=== PATIENT | female | born 1970 | race Caucasian/White ===

== ENCOUNTER 2021-02-23 15:21 | Emergency (ER) | payer OTHER, SELFPAY ==
--- NOTE | 2021-02-23 15:23 | ED.DENTAL ---
HPI - Dental/Oral General Chief complaint: Dental/Oral Stated complaint: tooth pain Time Seen by Provider: 02/23/21 15:23 Source: patient and RN notes reviewed History of Present Illness HPI Narrative: Patient is a 50-year-old female who presents the urgent care with complaints of right upper dental pain and facial swelling. Patient states that it started yesterday and became very painful last night. Patient states that she has been taking Tylenol without any improvement of the pain. States that she is unable to take ibuprofen. Denies of any fever, chills, nausea, vomiting. No other acute complaints. Patient is very anxious. No acute distress noted. Patient aware of the plan of care. Some parts of this dictation were generated by voice recognition software and may contain typographical and/or grammatical inaccuracies. Related Data Allergies Allergy/AdvReac Type Severity Reaction Status Date / Time Sulfa (Sulfonamide Allergy Unknown Verified 02/23/21 15:36 Antibiotics) ibuprofen [From Motrin] AdvReac Nausea and Verified 02/23/21 15:35 Vomiting Review of Systems Review of Systems: Narrative: CONSTITUTIONAL: Denies fever, chills, or sweats. EYES: Denies visual changes, redness, or discharge. ENT: Denies rhinorrhea, congestion, sore throat, or otalgia. Reports of upper right frontal dental pain CARDIOVASCULAR: Denies chest pain, palpitations, or edema. RESPIRATORY: Denies cough or dyspnea. GASTROINTESTINAL: Denies abdominal pain, nausea, vomiting, or diarrhea. GENITOURINARY: Denies dysuria or hematuria. SKIN: Denies rash or itching. MUSCULOSKELETAL: Denies back pain, joint pain, or myalgia. NEUROLOGIC: Denies headache, numbness, or weakness. All other systems reviewed are negative, except as documented in HPI. PMFSH Comments At the time of my signature, I reviewed and agree with the nursing past medical, surgical, social, and family history. There is no relevant family history pertinent to the patient complaint. Exam Narrative: Exam Narrative: GENERAL: This is a well-nourished, well-developed patient, in no apparent distress. HEAD: normocephalic, atraumatic. EYES: PERRL. Sclera clear/white. Vision is grossly intact. EARS: External ears normal NOSE: External nose normal with no obvious nasal discharge, nares without redness, no rhinorrhea. THROAT: Mucous membranes moist, posterior pharynx clear. DENTAL: Multiple levels dentition throughout with multiple carious lesions noted. Mild erythema and edema noted throughout the gingiva slightly increased to tooth #7 and 8 NECK: Neck supple CARDIOVASCULAR: Regular rate and rhythm without murmurs, gallops, or rubs. RESPIRATORY: Inspiratory and expiratory wheezes throughout, history of COPD SKIN: warm, intact with no suspicious lesions or rash, good texture and turgor. NEURO: awake, alert, and oriented to person, place and time. There were no obvious focal neurologic abnormalities. EXTREMITIES: No clubbing, cyanosis, or edema. Course Vital Signs Vital signs: Vital Signs Temperature 99.1 F 02/23/21 15:30 Pulse Rate 110 H 02/23/21 15:30 Respiratory Rate 20 02/23/21 15:30 Blood Pressure 117/59 L 02/23/21 15:30 Pulse Oximetry 97 02/23/21 15:30 Temperature 99.1 F 02/23/21 15:30 Pulse Rate 110 H 02/23/21 15:30 Respiratory Rate 20 02/23/21 15:30 Blood Pressure 117/59 L 02/23/21 15:30 Pulse Oximetry 97 02/23/21 15:30 Reviewed MDM - Dental/Oral MDM Narrative Medical decision making narrative: Advised the patient to complete the oral antibiotic regimen as prescribed. Be sure to eat and drink with the medication. Avoid extremely hot or cold foods/beverages. May use ice to the face for comfort. Continue to use Tylenol as needed for pain. Use the provided list of dentists for follow-up purposes. Follow-up with your PCP/dentist within 2 to 5 days or for worsening symptoms or failure to improve. Differential Diagnosis Differential diagnosis:
[2021-02-23 15:30] VITALS: BP 117/59; PULSE 110; RESP 20; TEMP 37.3; O2SAT 97
== END 2021-02-23 15:40 | disposition home or self-care (01) ==
PROVIDERS: Emergency Provider Nurse Practitioner Family
DX: K04.7 Periapical abscess without sinus (principal); N80.9 Endometriosis, unspecified; J44.9 Chronic obstructive pulmonary disease, unspecified
CPT/HCPCS: 99213; G0463

== ENCOUNTER 2021-05-22 12:43 | Emergency (ER) | payer OTHER, SELFPAY ==
[2021-05-22 12:51] VITALS: BP 109/85; PULSE 134; RESP 28; TEMP 36.9; O2SAT 99
[2021-05-22 12:56] VITALS: BP 109/85; PULSE 134; RESP 28; TEMP 36.9; O2SAT 99
--- NOTE | 2021-05-22 13:08 | ED.SOB ---
HPI - SOB/Dyspnea General Chief Complaint: Shortness of Breath/Dyspnea Stated Complaint: breathing prob History of Present Illness HPI Narrative: This is a 51-year-old lady that has a history of COPD patient states that she is running out of her inhaler she does have nebulizer that she is going to go fruit or nut picker but she is having some increased shortness of breath that has not been relieved by the albuterol she has at home. Patient states when she has these exacerbations she is in need of prednisone. Patient does not want to have a breathing treatment here states that she can just get steroids she will be okay patient is tearful and is using some accessory muscles Related Data Home Medications Medication Instructions Recorded Confirmed budesonide-formoterol [Symbicort] 2 puff INHALATION Q12H 05/22/21 05/22/21 Allergies Allergy/AdvReac Type Severity Reaction Status Date / Time Sulfa (Sulfonamide Allergy Unknown Verified 05/22/21 12:55 Antibiotics) ibuprofen [From Motrin] AdvReac Nausea and Verified 05/22/21 12:55 Vomiting Review of Systems Review of Systems: CONSTITUTIONAL: Denies fever, chills, or sweats. EYES: Denies visual changes, redness, or discharge. ENT: Denies rhinorrhea, congestion, sore throat, or otalgia. CARDIOVASCULAR:Denies chest pain, palpitations, or edema. RESPIRATORY: Reports cough or dyspnea. GASTROINTESTINAL: Denies abdominal pain, nausea, vomiting, or diarrhea. GENITOURINARY: Denies dysuria or hematuria. SKIN:[Denies rash or itching. MUSCULOSKELETAL:Denies back pain, joint pain, or myalgia. NEUROLOGIC: Denies headache, numbness, or weakness. PSYCHIATRIC:Denies anxiety or depression PMFSH Comments At time as signature, I have reviewed and agree with nursing past medical, social, surgical and family history. Please see nursing chart for further information. There is no relevant family history pertinent to the presenting complaint. Exam Narrative: GENERAL:Well-appearing, well-nourished, and in no acute distress. HEAD:Normocephalic, atraumatic. EYES: PERRLA and EOMI. ENT: Nares clear, no rhinorrhea or epistaxis. Mucous membranes moist. NECK: Supple. CHEST: Diminished with some coarse to intermittent wheezes to auscultation. Mild respiratory distress. HEART: tachycardic normal peripheral pulses. ABDOMEN: Soft, nontender, nondistended, normal active bowel sounds. EXTREMITIES: Normal range of motion. No edema. SKIN: Warm, dry, no rash. NEURO: No focal deficits. Alert and oriented x3. Course PROCEDURE RN/PA Physician Supervision Patient refused a breathing treatment patient is tachycardic with elevated respiration but patient is somewhat anxious states that she was worried she was not going to get steroid she will take her Ativan when she gets home as well as a breathing treatment with her steroids Vital Signs Vital signs: Vital Signs Temperature 98.4 F 05/22/21 12:51 Pulse Rate 134 H 05/22/21 12:51 Respiratory Rate 28 H 05/22/21 12:51 Blood Pressure 109/85 05/22/21 12:51 Pulse Oximetry 99 05/22/21 12:51 Temperature 98.4 F 05/22/21 12:56 Pulse Rate 134 H 05/22/21 12:56 Respiratory Rate 28 H 05/22/21 12:56 Blood Pressure 109/85 05/22/21 12:56 Pulse Oximetry 99 05/22/21 12:56 MDM - SOB/Dyspnea Differential Diagnosis Differential diagnosis: Likely acute exacerbation of chronic obstructive airways disease, congestive heart failure, community acquired pneumonia, asthma with exacerbation and pulmonary embolism Discharge Plan Discharge Clinical Impression: Acute exacerbation of chronic obstructive pulmonary disease (COPD) Patient Disposition: Home, Self-Care Condition: Stable Instructions: Antibiotic Form, COPD (Chronic Obstructive Pulmonary Disease) (ED) Additional Instructions: Make sure you take all of your 1st day prednisone at once Prescriptions: New methylprednisolone [Medrol (Jacoby)] 4 mg tablets,dose pack See Rx Instructions .ROUTE
== END 2021-05-22 13:18 | disposition home or self-care (01) ==
PROVIDERS: Emergency Provider Nurse Practitioner Family
DX: J44.1 Chronic obstructive pulmonary disease with (acute) exacerbation (principal); N80.9 Endometriosis, unspecified
CPT/HCPCS: 99213; G0463

== ENCOUNTER 2021-10-10 11:57 | Emergency (ER) | payer OTHER, SELFPAY ==
[2021-10-10 12:10] VITALS: BP 121/73; PULSE 110; RESP 18; TEMP 37.1; O2SAT 98
--- NOTE | 2021-10-10 12:20 | ED.DENTAL ---
HPI - Dental/Oral General Chief complaint: Dental/Oral Stated complaint: Toothache Time Seen by Provider: 10/10/21 12:21 Source: patient Mode of arrival: ambulatory Limitations: no limitations History of Present Illness HPI Narrative: 51-year-old female presents with concern for dental pain. She reports she has problems with her teeth, she has many missing teeth, broken teeth, caries. Reports she recently had 2 teeth that broke off and she now has pain. She reports history of abscess. She denies difficulty swallowing, fever, headache. MD Complaint: tooth pain Related Data Home Medications Medication Instructions Recorded Confirmed budesonide-formoterol [Symbicort] 2 puff INHALATION Q12H PRN 05/22/21 10/10/21 albuterol sulfate 2 puff INHALATION Q4-6H PRN 10/10/21 10/10/21 hydroxyzine HCl 25 mg PO Q6-12H PRN 10/10/21 10/10/21 ipratropium-albuterol 3 ml INHALATION QID PRN 10/10/21 10/10/21 tiotropium bromide [Spiriva with 18 cap INHALATION DAILY 10/10/21 10/10/21 HandiHaler] Allergies Allergy/AdvReac Type Severity Reaction Status Date / Time Sulfa (Sulfonamide Allergy Unknown Verified 10/10/21 12:07 Antibiotics) ibuprofen [From Motrin] AdvReac Nausea and Verified 10/10/21 12:07 Vomiting Review of Systems Review of Systems: CONSTITUTIONAL: Denies malaise, chills, sweats, or fever. EYES: Denies visual changes ENT: Denies rhinorrhea, congestion, sinus pain, otalgia or sore throat. Reports front upper and lower dental pain CARDIOVASCULAR: Denies chest pain, palpitations RESPIRATORY: Denies cough or dyspnea. SKIN: Denies rash or itching. MUSCULOSKELETAL: Denies myalgia. NEUROLOGIC: Denies numbness, weakness, or headache. All systems reviewed & are unremarkable except as noted in HPI and below PMFSH Comments At time of signature, agree with nursing past medical, surgical, social and family history. There is no relevant family history pertinent to the presenting complaint Exam Narrative: GENERAL: Well-appearing, well-nourished, and in no acute distress. HEAD: Normocephalic, atraumatic. EYES: PERRLA, sclera clear ENT: Nares clear. Mucous membranes moist. Tonsils not enlarged and without exudate. Many missing teeth, broken teeth, caries NECK: Supple. No lymphadenopathy. CHEST: No respiratory distress. Speaks in full sentences. HEART: Regular rate and rhythm. SKIN: Warm, dry, no visible rash. NEURO: Alert and oriented x3. PSYCH: Normal mood and affect Course Course Emergency Course: Patient is aware of diagnosis, understands and agrees to treatment plan. Anticipatory guidance given. Patient agrees to follow-up as directed and is aware of reasons to seek care at the emergency department. Portions of this record may have been created with voice recognition software Level of Care: Express Care Visit Vital Signs Vital signs: Vital Signs Temperature 98.8 F 10/10/21 12:10 Pulse Rate 110 H 10/10/21 12:10 Respiratory Rate 18 10/10/21 12:10 Blood Pressure 121/73 10/10/21 12:10 Pulse Oximetry 98 10/10/21 12:10 Temperature 98.8 F 10/10/21 12:10 Pulse Rate 110 H 10/10/21 12:10 Respiratory Rate 18 10/10/21 12:10 Blood Pressure 121/73 10/10/21 12:10 Pulse Oximetry 98 10/10/21 12:10 Reviewed. MDM - Dental/Oral MDM Narrative Medical decision making narrative: Patients pain and complaint coupled with physical findings are consistant with dentalgia. There are no focal signs of space occupying lesions that are compromising to the airway; no dysphagia, odynophagia, dysphonia, or dyspnea. No uvular deviation or soft palate edema. Patient is non-toxic appearing. The floor of the mouth is soft with no signs of Harjinder's Angina; no induration below mandible, no neck pain. Patient is without trismus or drooling and able to swallow secretions. Patient is felt appropriate for discharge home with dental follow up. Differential Diagnosis Differential diagnosis: Likely gingival absce
== END 2021-10-10 12:34 | disposition home or self-care (01) ==
PROVIDERS: Emergency Provider Nurse Practitioner
DX: K08.89 Other specified disorders of teeth and supporting structures (principal); J44.9 Chronic obstructive pulmonary disease, unspecified; K21.9 Gastro-esophageal reflux disease without esophagitis; N80.9 Endometriosis, unspecified; F41.9 Anxiety disorder, unspecified
CPT/HCPCS: 99213; G0463